=== PATIENT | male | born 1970 | race Caucasian/White ===

== ENCOUNTER 2019-04-12 20:11 | Inpatient (IN) ==
[2019-04-12] MEDS ORDERED: predniSONE 20 MG TABLET PO ONE (20:40)
--- NOTE | 2019-04-12 20:45 | ERNOTE ---
Dyspnea - Date Date of Service: 04/12/19 - General Presenting Symptoms: shortness of breath, difficulty of breathing, wheezing Time Seen by Provider: 04/12/19 20:32 Source: patient - Immun/Allergies/Home Medications Immunizations: IMMUNIZATION HX Immunizations Up to Date No History of Influenza Vaccine No Hx Pneumococcal Vaccination No Allergies/Adverse Reactions: Allergies No Known Allergies Allergy (Verified 11/10/13 11:48) Home Medications: HOME MEDICATIONS Tamsulosin HCl [Flomax] 0.4 mg PO DAILY 11/10/13 [Last Taken Unknown] metFORMIN HCL [Glucophage] 500 mg PO BIDWM 11/10/13 [Last Taken Unknown] traMADol HCL [Ultram] 2 tab PO QID #32 tablet 10/23/14 [Last Taken Unknown] Doxycycline Hyclate [Vibratab] 100 mg PO BID 06/03/16 [Last Taken Unknown] Gabapentin [Neurontin] 2 tab PO QID 06/03/16 [Last Taken Unknown] Ondansetron [Zofran Odt] 4 mg PO Q6H PRN #15 tab 06/03/16 [Last Taken Unknown] Sulfamethoxazole/Trimethoprim [Bactrim Ds] 1 tab PO BID 06/03/16 [Last Taken Unknown] traMADol HCL [Ultram] 50 mg PO QID PRN #60 tab 06/03/16 [Last Taken Unknown] - History of Present Illness Narrative: This is a 49-year-old gentleman comes to the emergency department with 2 months or more of coughing and shortness of breath. He says it is getting worse. It is gotten to the point today where he has had paroxysms of coughing and he ends up quite dizzy. The patient says he is bringing up a little bit of mucus, does not know what color. The patient denies chest pain. He does have shortness of breath. The patient is a smoker although he is been cutting down he now smokes 1 to 2 cigarettes/day. The patient has a history of bronchitis in the past. No fever or chills no vomiting but he does get nauseated after paroxysms of coughing. No urinary or GI symptoms such as diarrhea or constipation. No new rashes. No numbness or tingling. No sore throat runny nose or sinus congestion. The patient says he saw another doctor a month or more ago and was told that he might have acid reflux as the cause of his wheezing and shortness of breath. He does not have any other complaints. He is been taking the antiacid medicine and has not had any help Review of Systems - Review of Systems Constitutional: Present: no symptoms reported EYE: Present: no symptoms reported ENT: Present: no symptoms reported Respiratory: Present: shortness of breath, cough, wheezing Cardiology: Present: no symptoms reported Gastrointestinal/Abdominal: Present: nausea - Post his Genitourinary: Present: no symptoms reported Musculoskeletal: Present: no symptoms reported Skin: Present: no symptoms reported Neurological: Present: no symptoms reported Endocrine: Present: no symptoms reported Hematologic/Lymphatic: Present: no symptoms reported Psych: Present: no symptoms reported All Other Systems: All systems neg except as marked Medical History (Updated 04/12/19 @ 20:19 by Gely Petty RN) Diabetes GERD (gastroesophageal reflux disease) Sepsis Surgical History: Surgical History (Updated 04/12/19 @ 20:18 by Gely Petty RN) Amputation toe History of below-knee amputation of right lower extremity Social History: (Last Updated 04/12/19 @ 20:20 by Gely Petty RN) Tobacco: Smoking Status: Current every day smoker Smoking cigarettes per day: 1 Alcohol: alcohol intake: never Substance Use: substance use type: does not use Physical Exam - Physical Exam General Appearance: Present: wd/wn, alert, no apparent distress Head Exam: Present: normal inspection, no evidence of injury Eye Exam: Normal inspection: bilateral, PERRL: bilateral, EOMI: bilateral Ears, Nose, Throat: Present: normal ENT inspection, normal pharynx Neck: Present: normal inspection, nontender Respiratory: Present: no respiratory distress, no accessory muscle use, chest nontender, other - Patient has diminished air entry throughout. He has faint expiratory wheezes especially in the right middle lung. Crackles at the right base. Cardiovascular/Chest: Present: regular rate, rhythm, other - Heart rate is around 100 Gastrointestinal/Abdominal: Present: normal bowel sounds, nontender, nondistended, soft Back Exam: Present: normal inspection Extremity Exam: Present: other - Patient has a right leg amputation. No swelling in the other leg Neurological Exam: Present: alert, oriented, normal mood/affect, no motor/sensory deficits Skin Exam: Present: normal color, warm/dry Lymphatic Exam: Present: no adenopathy Progress - Results and Orders Patient's Lab Results:: I have reviewed the patient's lab results. - Vital Signs Patient's Vital Signs:: I have reviewed the patient's vital signs. Vital Signs: Vital Signs 04/12/19 20:21 Temperature 37.0 C Pulse Rate 108 H Respiratory Rate 22 H Blood Pressure 171/102 H O2 Sat by Pulse Oximetry 93 - EKG EKG #1 EKG read: Interp. by me EKG Comments: Sinus tach ventricular rate of 101, incomplete right bundle. [place] is hor izontal. Intervals are normal. No ST elevation. T waves have the normal direction and essentially normal morphology. - X-Ray X-Ray #1 X-Ray: chest Interpretation: Interp. by me X-ray Comments: Patient has a consolidation at the right base.? Spiculated mass as well? CT being ordered without contrast due to GFR - CT/Ultrasound CT/Ultrasound Narrative: Noncontrasted CT shows effusion and infiltrate bilaterally. CT of the chest with PE protocol shows multiple gallbladder calculi with gallbladder distention. No pulmonary embolism. Large pleural effusion on the right and small on the left. Bilateral pneumonia. - Progress/Reassessment Chief Complaint: Dyspnea Plan - Plan Plan: Patient is a smoker for more than 30 years. Never formally diagnosed with COPD but x-ray and CAT scan are concerning for structural lung disease and COPD. With bilateral extensive pneumonia and hypoxia I elected to place the patient on double Pseudomonas coverage. He is received Levaquin and Zosyn. I discussed this with Dr. Cano who is in agreement. We will admit him to the floor. Departure Clinical Impression: Hypoxia Pneumonia Qualifiers: Pneumonia type: due to unspecified organism Laterality: bilateral Lung l ocation: unspecified part of lung Qualified Code(s): J18.9 - Pneumonia, unspecified organism - Departure Disposition: Still a patient Condition: Stable Referrals: Ember Mas MD [Primary Care Provider] -
[2019-04-12] MEDS: ALBUTEROL SULFATE/IPRATROPIUM 3 ML NEBU IH SCH ×2 (21:15→22:27)
[2019-04-12] MEDS ORDERED: NORMAL SALINE 1,000 ML IV ONE ×2 (21:16→23:54)
[2019-04-12] MEDS ORDERED: LEVOFLOXACIN 500 MG TABLET PO ONE (21:17)
[2019-04-12] MEDS ORDERED: PIPERACILLIN SODIUM/TAZOBACTAM 3.375 GM in DEXTROSE 5 % IN WATER 100 ML IV ONE ×2 (21:17)
[2019-04-12 21:33] LABS: Albumin * 2.5 gm/dl (3.4-5.0); Anion Gap 12.8 mmol/L (6.8-13.8); BUN/Creatinine Ratio 6.7 (9.0-21.6); Bilirubin, Total 0.4 mg/dL (0.0-1.1); Ca. Corrected For Albumin 8.8 mg/dL (8.4-10.2); Calcium * 7.9 mg/dL (7.9-10.9); Carbon Dioxide 26.6 mmol/L (24-32.6); Potassium 4.4 mmol/L (3.4-4.6); Total Protein 6.1 gm/dL (6.2-8.2)
[2019-04-12 21:36] LABS: Hematocrit 35.2 % (42.0-52.0); Hemoglobin 11.8 gm/dL (13.5-18.0); Mean Cell Volume 93.4 fl (78-100); Mean Corpuscular Hemoglobin 31.3 pg (27-31); Mean Corpuscular Hgb Conc 33.5 g/dl (32-36); Mean Platelet Volume 9.4 fl (8-11.3); Neutrophil # 3.3 K/mm3 (1.3-6.0); Neutrophil % 65.3 % (42-75.0); Platelet Count 252 K/mm3 (150-450); Red Blood Count 3.77 M/mm3 (4.7-6.0); Red Cell Distribution Width 14.2 % (11.5-14.0); White Blood Count 5.1 K/mm3 (4.0-10.5)
[2019-04-12] MEDS ORDERED: ACETAMINOPHEN 325 MG TABLET PO PRN (23:20)
[2019-04-12] MEDS ORDERED: guaiFENesin 100 MG/5 ML SYRUP PO PRN (23:26)
[2019-04-12] MEDS ORDERED: traMADol HCL 50 MG TABLET PO PRN (23:29)
[2019-04-12] MEDS ORDERED: ONDANSETRON 4 MG TAB.RAPDIS PO PRN (23:29)
--- NOTE | 2019-04-12 23:59 | HP ---
Chief Complaint - Chief Complaint Date of Service: 04/12/19 Time of Service: 23:44 Chief Complaint: I have had cough and shortness of breath over the past several months. History of Present Illness: 49-year-old male with past medical history of type 2 diabetes, GERD, sepsis, nicotine dependence, Charcot Whitney tooth disease was evaluated in our ER due to persistent productive cough and worsening shortness of breath over the past 3 months. Patient has seen his primary care doctor with his complaint of persistent cough and says that the doctor told him that is most likely related to his GERD however the cough persists and is worsening. He reports the intensity of the cough is so bad that earlier today he passed out from all the coughing and when he came to he was very dizzy. Patient has an extensive history of cigarette smoking but has never been formally diagnosed with COPD, he reports attempting to quit now and has reduced his cigarette to 1 or 2 a day. Patient denies any fever or chills but says that he has been growing weaker with all the coughing. Medical History (Updated 04/12/19 @ 23:31 by Estrellita Crane RN) Diabetes (Acute) Sepsis (Acute) GERD (gastroesophageal reflux disease) (Acute) Surgical History: Surgical History (Updated 04/12/19 @ 23:31 by Estrellita Crane RN) History of below-knee amputation of right lower extremity (Acute) Family History: Family History (Updated 04/12/19 @ 23:33 by Estrellita Crane RN) Father Cancer Mother Diabetes Social History: (Last Updated 04/12/19 @ 20:20 by Gely Petty RN) Tobacco: Smoking Status: Current every day smoker Smoking cigarettes per day: 1 Alcohol: alcohol intake: never Substance Use: substance use type: does not use Peds Patient Hx - Developmental: No Pertinent Hx Peds Patient Hx - Medical: No Pertinent Hx Peds Patient Hx - Cardiac/Respiratory: No Pertinent Hx Peds Patient Hx - Surgical: No Surgical History Patient History - Cancer: No Hx of Cancer Review Of Systems (GEN) - Review of Systems Generalized/Overall Review: Present: No Symptoms Reported EENTM: Present: No Symptoms Reported Respiratory: Present: Cough, Shortness of Breath, Wheezing Cardiac: Present: No Symptoms Reported Abdominal: Present: No Symptoms Reported Genitourinary: Present: No Symptoms Reported Musculoskeletal: Present: No Symptoms Reported Neurological: Present: No Symptoms Reported Skin: Present: No Symptoms Reported Endocrine: Present: No Symptoms Reported Immunizations: IMMUNIZATION HX Immunizations Up to Date No History of Influenza Vaccine No Hx Pneumococcal Vaccination No Allergies/Adverse Reactions: Allergies Allergy/AdvReac Type Severity Reaction Status Date / Time No Known Allergies Allergy Verified 04/12/19 23:25 Home Medications: HOME MEDICATIONS Gabapentin [Neurontin] 2 tab PO QID 06/03/16 [Last Taken Unknown] traMADol HCL [Ultram] 50 mg PO QID PRN #60 tab 06/03/16 [Last Taken 04/12/19 08:00] Exam - Exam Vital Signs: Vital Signs - Last Taken Temp 36.7 C 04/12/19 23:37 Pulse 106 H 04/12/19 23:37 Resp 20 04/12/19 23:37 BP 131/97 H 04/12/19 23:37 Pulse Ox 92 L 04/12/19 23:37 Constitutional: Present: Alert, Oriented x3, Cooperative, Well developed, Well nourished, No distress ENT Exam: Present: normal ENT inspection, hearing grossly normal, pharynx normal, TMs normal Eye Exam: bilateral eye: normal inspection, PERRL, EOMI Neck: Present: non-tender Back Exam: Present: normal inspection Breasts: Present: Exam deferred Respiratory: Present: decreased breath sounds - Decreased breath sounds and crackles at bases, crackles Cardiovascular/Chest: Present: normal peripheral pulses, regular rate, rhythm, no chest tenderness, no edema, no gallop, no JVD, no murmur, no rub Peripheral Pulses: carotid (R): 4+, carotid (L): 4+, femoral (R): 4+, femoral (L): 4+, dorsalis-pedis (R): 4+, dorsalis-pedis (L): 4+ Abdomen: Present: Normal bowel sounds, soft, nontender, nondistended, no rebound tenderness, no hepatospenomegaly, no masses, obese /Rectal: Present: Exam deferred Extremity: Present: normal range of motion, non-tender, no pedal edema, no calf tenderness, normal capillary refill, other - Right below the knee amputation Skin Exam: Present: normal color, warm/dry, no cyanosis Lymphatic: Present: no adenopathy Neurologic: Present: 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, normal cerebellar test, no motor/sensory deficits, alert, normal mood/affect, oriented x 3 Appearance: Present: appropriate appearance, appropriate insight, neat, no memory impairment Eye contact: Present: cooperative, good eye contact, normal speech Thoughts: Present: normal thought pattern, no apparent hallucination Diagnostic Studies: Abnormal Lab Results 04/12/19 04/12/19 Range/Units 21:25 21:25 RBC 3.77 L (4.7-6.0) M/mm3 Hgb 11.8 L (13.5-18.0) gm/dL Hct 35.2 L (42.0-52.0) % MCH 31.3 H (27-31) pg RDW 14.2 H (11.5-14.0) % Monocytes % 9.6 H (0.0-9) % Eosinophils % 3.9 H (0.0-3.0) % Lymphocytes # 1.04 L (1.5-3.5) k/mm3 Creatinine 2.25 H (0.4-1.4) mg/dL Est GFR (Non-Af Amer) 33 L (60-130) mL/min BUN/Creatinine Ratio 6.7 L (9.0-21.6) Random Glucose 144 H (70-110) mg/dL ALT 8 L (19-67) U/L Total Protein 6.1 L (6.2-8.2) gm/dL Albumin 2.5 L (3.4-5.0) gm/dl Laboratory Results WBC 5.1 K/mm3 (4.0-10.5) 04/12/19 21:25 RBC 3.77 M/mm3 (4.7-6.0) L 04/12/19 21:25 Hgb 11.8 gm/dL (13.5-18.0) L 04/12/19 21:25 Hct 35.2 % (42.0-52.0) L 04/12/19 21:25 MCV 93.4 fl (78-100) 04/12/19 21:25 MCH 31.3 pg (27-31) H 04/12/19 21:25 MCHC 33.5 g/dl (32-36) 04/12/19 21:25 RDW 14.2 % (11.5-14.0) H 04/12/19 21:25 Plt Count 252 K/mm3 (150-450) 04/12/19 21:25 MPV 9.4 fl (8-11.3) 04/12/19 21:25 Immature Gran % (Auto) 0.20 % (0.001-0.429) 04/12/19 21:25 Immature Gran # (Auto) 0.01 K/mm3 (0.000-0.0310) 04/12/19 21:25 65.3 % (42-75.0) 04/12/19 21:25 20.4 % (20-51) 04/12/19 21:25 9.6 % (0.0-9) H 04/12/19 21:25 3.9 % (0.0-3.0) H 04/12/19 21:25 0.6 % (0.0-1.0) 04/12/19 21: Nucleated RBC % 0.0 k/mm3 (0-1) 04/12/19 21:25 3.3 K/mm3 (1.3-6.0) 04/12/19 21:25 1.04 k/mm3 (1.5-3.5) L 04/12/19 21:25 0.5 k/mm3 (0.0-1.0) 04/12/19 21:25 0.2 k/mm3 (0.0-0.7) 04/12/19 21:25 Absolute Basophils 0.0 k/mm3 (0.0-0.1) 04/12/19 21:25 Sodium 140 mmol/L (132-142) 04/12/19 21:25 141 mmol/L (130-142) 04/12/19 21:25 Potassium 4.4 mmol/L (3.4-4.6) 04/12/19 21:25 Chloride 105 mmol/L (97-106) 04/12/19 21:25 Carbon Dioxide 26.6 mmol/L (24-32.6) 04/12/19 21:25 12.8 mmol/L (6.8-13.8) 04/12/19 21:25 BUN 15 mg/dL (6-23) 04/12/19 21:25 2.25 mg/dL (0.4-1.4) H 04/12/19 21:25 Est GFR (Non-Af Amer) 33 mL/min (60-130) L 04/12/19 21:25 6.7 (9.0-21.6) L 04/12/19 21:25 144 mg/dL (70-110) H 04/12/19 21:25 Calcium 7.9 mg/dL (7.9-10.9) 04/12/19:25 Calcium Adj for Albumin 8.8 mg/dL (8.4-10.2) 04/12/19 21:25 0.4 mg/dL (0.0-1.1) 04/12/19 21:25 AST 16 U/L (0-48) 04/12/19: ALT 8 U/L (19-67) L 04/12/19 21:25 83 U/L (50-170) 04/12/19 21:25 Less than 0.017 ng/mL (0.00-0.10) 04/12/19 20:53 6.1 gm/dL (6.2-8.2) L 04/12/19 21:25 2.5 gm/dl (3.4-5.0) L 04/12/19 21:25 Assessment/Plan - Narrative Narrative: Patient was evaluated and medical chart was reviewed and decision to admit and patient to a [facility] unit with a diagnosis of bilateral pneumonia and bilateral pleural effusions was made. Chest CT ordered in the ER demonstrated bilateral pneumonia and a large pleural effusion on the right and small pleural effusion on the left. We will cover the patient with IV antibiotics and breathing treatment with DuoNeb [id number] as well as antitussives. Patient's routine medications have been reconciled so we can continue administrating them during the hospitalization. Labs on admission demonstrate a GFR of 33, however patient does have a history of chronic kidney disease which he says is secondary to Uxtkbab-[id number] disease however I am not sure if this is correct. Previous labs on past hospitalizations show a GFR around 40, therefore we will attempt to hydrate him and see if he is able to return to that baseline. - Assessment/Plan (1) Bilateral pneumonia Problem: Acute (2) Persistent cough Problem: Acute (3) Persistent cough for 3 weeks or longer Problem: Acute (4) Bilateral pleural effusion Problem: Acute (5) Shortness of breath Problem: Acute (6) Nicotine dependence Problem: Acute Qualifiers: Nicotine product type: cigarettes (7) Diabetes 1.5, managed as type 2 Problem: Chronic (8) CKD (chronic kidney disease) stage 3, GFR 30-59 ml/min Problem: Acute (9) Hypoxemia Problem: Acute
[2019-04-13] MEDS: ALBUTEROL SULFATE/IPRATROPIUM 3 ML NEBU IH SCH ×12 (00:28→23:01)
[2019-04-13] MEDS: DOCUSATE SODIUM 100 MG CAPSULE PO SCH ×3 (00:28→20:41)
[2019-04-13] MEDS: ENOXAPARIN SODIUM 40 MG/0.4 ML SYRG SC SCH ×2 (00:38→22:35)
[2019-04-13] MEDS: FAMOTIDINE 20 MG in DEXTROSE 5 % IN WATER 100 ML IV SCH ×4 (00:39→12:33)
[2019-04-13] MEDS: NICOTINE 21 MG PATC TD SCH ×2 (00:40→22:36)
[2019-04-13] MEDS: METHYLPREDNISOLONE SOD SUCC/PF 40 MG/ML VIAL IV SCH ×2 (00:40→06:44)
[2019-04-13] MEDS ORDERED: ALBUTEROL SULFATE/IPRATROPIUM 3 ML NEBU IH ONE (01:58)
[2019-04-13] MEDS ORDERED: PIPERACILLIN SODIUM/TAZOBACTAM 2.25 GM in DEXTROSE 5 % IN WATER 100 ML IV SCH ×2 (03:00)
[2019-04-13] MEDS ORDERED: PIPERACILLIN SODIUM/TAZOBACTAM 2.25 GM VIAL IV SCH (03:00)
[2019-04-13 06:48] LABS: Albumin * 2.4 gm/dl (3.4-5.0); Anion Gap 14.9 mmol/L (6.8-13.8); BUN/Creatinine Ratio 6.8 (9.0-21.6); Bilirubin, Total 0.4 mg/dL (0.0-1.1); Potassium 4.9 mmol/L (3.4-4.6); Total Protein 6.1 gm/dL (6.2-8.2)
[2019-04-13] MEDS: METHYLPREDNISOLONE SOD SUCC/PF 125 MG/2 ML VIAL IV SCH ×2 (08:04→14:03)
[2019-04-13] MEDS: GABAPENTIN 600 MG TABLET PO SCH ×5 (08:10→20:42)
[2019-04-13] MEDS ORDERED: metFORMIN HCL 500 MG TABLET PO SCH (09:00)
[2019-04-13] MEDS ORDERED: TAMSULOSIN HCL 0.4 MG CAP.SR.24H PO SCH ×2 (09:00→18:00)
[2019-04-13] MEDS ORDERED: DOXYCYCLINE HYCLATE 100 MG TABLET PO SCH (09:00)
[2019-04-13] MEDS ORDERED: PIPERACILLIN SODIUM/TAZOBACTAM 3.375 GM in DEXTROSE 5 % IN WATER 100 ML IV SCH ×2 (09:30)
[2019-04-13] MEDS ORDERED: traMADol HCL 50 MG TABLET PO PRN (13:04)
[2019-04-13] MEDS ORDERED: LISINOPRIL 5 MG TABLET PO SCH (14:00)
--- NOTE | 2019-04-13 14:12 | PN ---
Subjective - Date and Time Seen Date: 04/13/19 Time: 14:00 Subjective Narrative: I feel better, I am coughing less, and do not have shortness of breath. Objective Objective Narrative: 49-year-old male admitted for bilateral bronchopneumonia and bilateral pleural effusion was evaluated at bedside and was found to be afebrile and in no acute distress patient symptoms have pretty much resolved after we treated him with breathing treatments round the clock and IV steroids. He is also receiving IV antibiotics to cover his pneumonia. During bedside evaluation this morning patient reports feeling much better and denied any difficulty breathing or any new symptoms, he also said his cough is gone. During the bedside evaluation patient said that he wanted to go home since he is feeling better now, however was explained to patient that he needs to stay in the hospital for further treatment or else he is going to get sick again have to come back. He finally agreed to 1 more day of hospitalization to receive IV antibiotics and for reevaluation in the morning. His blood sugar was elevated on today's labs so a sliding scale was added to his treatment and periodic Accu-Cheks were also ordered for close monitoring. We will attempt to start weaning his steroids in order to prevent hyperglycemia. We will continue to monitor him closely. - Review of Systems Generalized/Overall Review: Reports: No Symptoms Reported EENTM: Reports: No Symptoms Reported Respiratory: Reports: No Symptoms Reported Cardiac: Reports: No Symptoms Reported Abdominal: Reports: No Symptoms Reported Genitourinary Symptoms: Reports: No Symptoms Reported Musculoskeletal Complaints: Reports: No Symptoms Reported Neurological: Reports: No Symptoms Reported Skin: Reports: No Symptoms Reported Endocrine: Reports: No Symptoms Reported - Vitals Vitals: Last Vital Signs Temp 36.8 C 04/13/19 13:29 Pulse 117 H 04/13/19 13:29 Resp 20 04/13/19 13:29 BP 146/75 H 04/13/19 13:29 Pulse Ox 96 04/13/19 13:29 - Abnormal Lab Findings Abnormal Lab Findings: Abnormal Lab Results 04/12/19 04/12/19 04/13/19 Range/Units 21:25 21:25 06:32 RBC 3.77 L (4.7-6.0) M/mm3 Hgb 11.8 L (13.5-18.0) gm/dL Hct 35.2 L (42.0-52.0) % MCH 31.3 H (27-31) pg RDW 14.2 H (11.5-14.0) % Monocytes % 9.6 H (0.0-9) % Eosinophils % 3.9 H (0.0-3.0) % Lymphocytes # 1.04 L (1.5-3.5) k/mm3 Potassium 4.9 H (3.4-4.6) mmol/L Carbon Dioxide 23.0 L (24-32.6) mmol/L Anion Gap 14.9 H (6.8-13.8) mmol/L Creatinine 2.25 H 2.37 H (0.4-1.4) mg/dL Est GFR (Non-Af Amer) 33 L 31 L (60-130) mL/min BUN/Creatinine Ratio 6.7 L 6.8 L (9.0-21.6) Random Glucose 144 H 398 H D (70-110) mg/dL ALT 8 L 7 L (19-67) U/L Total Protein 6.1 L 6.1 L (6.2-8.2) gm/dL Albumin 2.5 L 2.4 L (3.4-5.0) gm/dl - Exam Constitutional: Present: Alert, Oriented x3, Cooperative, Well developed, Well nourished, No distress ENT Exam: Present: normal ENT inspection, hearing grossly normal, pharynx normal, TMs normal Neck: Present: non-tender, full range of motion, supple, normal inspection, trachea midline Breasts: Present: Exam deferred Respiratory: Present: wheezing - Inspiratory wheezing heard bilaterally on apices Cardiovascular/Chest: Present: normal peripheral pulses, regular rate, rhythm, no chest tenderness, no edema, no gallop, no JVD, no murmur, no rub Abdomen: Present: Normal bowel sounds, soft, nontender, nondistended, no rebound tenderness, no hepatospenomegaly, no masses /Rectal: Present: Exam deferred Extremity: Present: non-tender, no pedal edema, no calf tenderness, normal capillary refill, other - Right below the knee amputation Skin Exam: Present: normal color, warm/dry, no cyanosis Lymphatic: Present: no adenopathy Neurologic: Present: pmo business analyst II-XII nml as tested, normal cerebellar test, no motor/sensory deficits, alert, normal mood/affect, oriented x 3 Appearance: Present: appropriate appearance, appropriate insight, neat, no memory impairment Eye contact: Present: cooperative, good eye contact, normal speech Thoughts: Present: normal thought pattern, no apparent hallucination Assessment/Plan Plan Narrative: We will continue treating patient with IV antibiotics, and follow-up with labs in the morning. In the meantime IV steroids has been decreased especially given the patient's hyperglycemia. Antihypertensive was added to his treatment due to ongoing hypertension. We will continue to monitor him closely. - Problems/Diagnosis (1) Bilateral pneumonia Problem: Acute (2) Persistent cough Problem: Resolved (3) Persistent cough for 3 weeks or longer Problem: Acute (4) Bilateral pleural effusion Problem: Acute (5) Shortness of breath Problem: Resolved (6) Nicotine dependence Problem: Chronic Qualifiers: Nicotine product type: cigarettes (7) Diabetes 1.5, managed as type 2 Problem: Chronic (8) CKD (chronic kidney disease) stage 3, GFR 30-59 ml/min Problem: Acute (9) Hypoxemia Problem: Acute
[2019-04-13] MEDS: METOPROLOL TARTRATE 25 MG TABLET PO SCH (16:46)
[2019-04-13] MEDS: INSULIN LISPRO 100 UNITS/ML VIAL SC SCH ×2 (17:17→20:44)
[2019-04-13] MEDS: FAMOTIDINE 20 MG TABLET PO SCH (20:44)
[2019-04-14] MEDS ORDERED: METHYLPREDNISOLONE SOD SUCC/PF 125 MG/2 ML VIAL IV SCH (02:00)
[2019-04-14] MEDS: ALBUTEROL SULFATE/IPRATROPIUM 3 ML NEBU IH SCH ×3 (02:29→10:26)
[2019-04-14 05:54] LABS: Hematocrit 35.6 % (42.0-52.0); Hemoglobin 11.8 gm/dL (13.5-18.0); Mean Cell Volume 93.2 fl (78-100); Mean Corpuscular Hemoglobin 30.9 pg (27-31); Mean Corpuscular Hgb Conc 33.1 g/dl (32-36); Mean Platelet Volume 9.2 fl (8-11.3); Neutrophil # 15.3 K/mm3 (1.3-6.0); Neutrophil % 94.4 % (42-75.0); Platelet Count 283 K/mm3 (150-450); Red Blood Count 3.82 M/mm3 (4.7-6.0); Red Cell Distribution Width 14.5 % (11.5-14.0); White Blood Count 16.2 K/mm3 (4.0-10.5)
[2019-04-14 06:16] LABS: Anion Gap 17.1 mmol/L (6.8-13.8); BUN/Creatinine Ratio 8.5 (9.0-21.6); Calcium * 9.1 mg/dL (7.9-10.9); Carbon Dioxide 22.6 mmol/L (24-32.6); Estimated Creat Clear 42.8; Potassium 4.7 mmol/L (3.4-4.6)
[2019-04-14] MEDS: INSULIN LISPRO 100 UNITS/ML VIAL SC SCH (06:47)
[2019-04-14] MEDS: DOCUSATE SODIUM 100 MG CAPSULE PO SCH (08:28)
[2019-04-14] MEDS: FAMOTIDINE 20 MG TABLET PO SCH (08:28)
[2019-04-14] MEDS: METOPROLOL TARTRATE 25 MG TABLET PO SCH (08:28)
[2019-04-14] MEDS: GABAPENTIN 600 MG TABLET PO SCH (08:28)
[2019-04-14] MEDS ORDERED: METHYLPREDNISOLONE SOD SUCC/PF 40 MG/ML VIAL IV SCH (09:51)
--- NOTE | 2019-04-14 10:13 | DS ---
(1) Bilateral pneumonia Problem: Acute (2) Persistent cough Problem: Resolved (3) Persistent cough for 3 weeks or longer Problem: Acute (4) Bilateral pleural effusion Problem: Acute (5) Shortness of breath Problem: Resolved (6) Nicotine dependence Problem: Chronic Qualifiers: Nicotine product type: cigarettes (7) Diabetes 1.5, managed as type 2 Problem: Chronic (8) CKD (chronic kidney disease) stage 3, GFR 30-59 ml/min Problem: Acute (9) Hypoxemia Problem: Resolved Date of Discharge:: 04/14/19 Description of Stay: 49-year-old male admitted for bilateral bronchopneumonia and bilateral pleural effusions and a persistent cough was evaluated at bedside and was found to be afebrile and in no acute distress. Patient has shown significant improvement since arriving at our institution, his cough and shortness of breath have completely resolved and he is saturating at 96% on room air. Patient reports feeling better and stronger and is requesting to go home. He is WBCs has increased but that is most likely secondary to the IV steroids that we have been treating him with, labs on admission did not have leukocytosis, patient has not had any fever and patient has been on antibiotics so it is like unlikely that he has a worsening infection. At bedside we also discussed better compliance with his diabetes medication, because he admitted that he does not take any treatment for his diabetes and more than a year. But he was informed that during the hospitalization his blood sugars have been elevated so he is to check his blood sugar regularly and comply with his treatment. Decision to discharge patient home with antibiotics and additional days of oral steroids was made and patient was instructed to follow-up with his PCP in 3 to 5 days. Procedures Performed: none Results and Findings: Pending Mircobiology Results 04/12/19 22:29 Blood Blood Culture - Preliminary NO GROWTH 24 HOURS 04/12/19 21:25 Blood Blood Culture - Preliminary NO GROWTH 24 HOURS Lab Pending Results 04/12/19 20:53: Troponin I Less than 0.017 04/12/19 21:25: WBC 5.1, RBC 3.77 L, Hgb 11.8 L, Hct 35.2 L, MCV 93.4, MCH 31.3 H, MCHC 33.5, RDW 14.2 H, Plt Count 252, MPV 9.4, Immature Gran % (Auto) 0.20, Immature Gran # (Auto) 0.01, Neutrophils % 65.3, Lymphocytes % 20.4, Monocytes % 9.6 H, Eosinophils % 3.9 H, Basophils % 0.6, Nucleated RBC % 0.0, Neutrophils # 3.3, Lymphocytes # 1.04 L, Monocytes # 0.5, Eosinophils # 0.2, Absolute Basophils 0.0 04/12/19 21:25: Sodium 140, Plasma Sodium 141, Potassium 4.4, Chloride 105, Carbon Dioxide 26.6, Anion Gap 12.8, BUN 15, Creatinine 2.25 H, Est GFR (Non-Af Amer) 33 L, BUN/Creatinine Ratio 6.7 L, Random Glucose 144 H, Calcium 7.9, Calcium Adj for Albumin 8.8, Total Bilirubin 0.4, AST 16, ALT 8 L, Alkaline Phosphatase 83, Total Protein 6.1 L, Albumin 2.5 L 04/13/19 06:32: Sodium 135, Plasma Sodium 140, Potassium 4.9 H, Chloride 102, Carbon Dioxide 23.0 L, Anion Gap 14.9 H, BUN 16, Creatinine 2.37 H, Est GFR (Non-Af Amer) 31 L, BUN/Creatinine Ratio 6.8 L, Random Glucose 398 H D, Calcium 8.0, Calcium Adj for Albumin 9.0, Total Bilirubin 0.4, AST 12, ALT 7 L, Alkaline Phosphatase 87, Total Protein 6.1 L, Albumin 2.4 L 04/14/19 05:31: WBC 16.2 H D, RBC 3.82 L, Hgb 11.8 L, Hct 35.6 L, MCV 93.2, MCH 30.9, MCHC 33.1, RDW 14.5 H, Plt Count 283, MPV 9.2, Immature Gran % (Auto) 0.60 H, Immature Gran # (Auto) 0.10 H, Neutrophils % 94.4 H, Lymphocytes % 3.0 L, Monocytes % 1.9, Eosinophils % 0.0, Basophils % 0.1, Nucleated RBC % 0.0, Neutrophils # 15.3 H, Lymphocytes # 0.48 L, Monocytes # 0.3, Eosinophils # 0.0, Absolute Basophils 0.0 04/14/19 05:31: Sodium 136, Plasma Sodium 138, Potassium 4.7 H, Chloride 101, Carbon Dioxide 22.6 L, Anion Gap 17.1 H, BUN 19, Creatinine 2.24 H, Est GFR (Non-Af Amer) 33 L, BUN/Creatinine Ratio 8.5 L, Random Glucose 236 H D, Calcium 9.1 Discharge Location: Home Disposition: Home self-care Condition: Fair Discharge Activity: Activity as tolerated Discharge Diet: Consistent carbs Referrals: Ember Mas MD [Primary Care Provider] - Additional Patient Instructions (free text): -Please make TCM appointment unless fci discharge, or if following up with outside provider. Thank you! Nadia @ [employer] [id number] or Albina at [employer] [address]. Prescriptions (Any new or edited meds): Levofloxacin [Levaquin] 750 mg PO Q48H 5 Days #5 tab Prednisone 10 mg PO DAILY 5 Days #5 tab Complete Home Medications List: Complete Home Medication List: Gabapentin [Neurontin] 600 mg PO QID 06/03/16 traMADol HCL [Tramadol HCl] 50 mg PO Q4H PRN 04/13/19 Famotidine [Pepcid] 20 mg PO BID tablet 04/14/19 Levofloxacin [Levaquin] 750 mg PO Q48H 5 Days #5 tab 04/14/19 Metoprolol Tartrate [Lopressor] 25 mg PO DAILY tablet 04/14/19 Prednisone 10 mg PO DAILY 5 Days #5 tab 04/14/19 Tamsulosin HCl [Flomax] 0.4 mg PO DAILY@1800 cap.sr.24h 04/14/19 guaiFENesin [Robitussin] 100 mg PO Q4H PRN syrup 04/14/19 metFORMIN HCL [Glucophage] 500 mg PO BIDWM tablet 04/14/19 traMADol HCL [Ultram] 50 mg PO Q4H PRN tablet 04/14/19
[2019-04-14 12:02] VITALS: BP 141/80
[2019-04-14] MEDS ORDERED: LEVOFLOXACIN 750 MG TABLET PO SCH (21:00)
== END 2019-04-14 11:50 | disposition home or self-care (01) | DRG 178 ==
LOC: ER 20:11 → MS 22:55
PROVIDERS: ADMIT Family Medicine; ATTEND Family Medicine
CPT/HCPCS: 36415; 71020; 71046; 71250; 71275; 80048; 80053; 84484; 85025; 87040; 87081; 93005; 94640; 94664; 96365; 99285; Q9967